=== PATIENT | male | born 1940 | race Caucasian/White ===

== ENCOUNTER 2017-11-21 11:37 | Observation (INO) | payer OTHER ==
[2017-11-21] MEDS ORDERED: ACETAMINOPHEN 500 MG TAB ONE (12:15)
[2017-11-21 12:21] LABS: Absolute Lymphocytes (CBC) 1.7 K/uL (0.7-4.9); Absolute Monocytes 0.6 K/uL (0.1-1.3); Absolute Neutrophil 5.9 K/uL (1.8-8.0); Basophils % 0.4 % (0-1.3); Eosinophils % 1.3 % (0-4.4); Hematocrit 46.1 % (39.6-49.0); Lymphocytes % 20.5 % (15.3-44.8); MCH 34.2 pg (27.0-35.0); MCV 94.9 fL (80-100); Monocytes % 6.7 % (3.3-12.3); RBC Red Blood Cell Count 4.85 M/uL (4.33-5.43)
--- NOTE | 2017-11-21 12:21 | RAD REPORT ---
EXAM DESCRIPTION: CT - Head Brain Wo Cont - 11/21/2017 12:11 pm CLINICAL HISTORY: Headache, photophobia COMPARISON: None. TECHNIQUE: Axial 5 mm thick images of the head were obtained without IV contrast. All CT scans are performed using dose optimization technique as appropriate and may include automated exposure control or mA/KV adjustment according to patient size. FINDINGS: No intracranial hemorrhage, mass, edema or shift of mid-line structures. No acute infarcti on changes seen. Patient has mild atrophy and chronic ischemic change. Ventricles are in proportion. Mastoid air cells are clear. Minimal mucosal thickening in the ethmoid air cells. No acute bony findings. IMPRESSION: Mild atrophy and chronic ischemic change. No acute finding.
[2017-11-21 12:24] LABS: Protime INR 0.98
[2017-11-21 12:34] LABS: BUN Blood Urea Nitrogen 15 mg/dL (7-18); Bicarbonate 26 mmol/L (21-32); Glucose Level 137 mg/dL (74-106); NT PRO-BNP 307 pg/mL (<450); Potassium 4.1 mmol/L (3.5-5.1); Sodium Level 141 mmol/L (136-145); Troponin (Emerg Dept Use Only) < 0.02 ng/mL (0.0-0.045)
--- NOTE | 2017-11-21 12:52 | RAD REPORT ---
EXAM DESCRIPTION: Katt Single View11/21/2017 12:30 pm CLINICAL HISTORY: Chest pain COMPARISON: 2014 FINDINGS: The lungs appear clear of acute infiltrate. The heart is normal size IMPRESSION: No acute abnormalities displayed
--- NOTE | 2017-11-21 13:32 | ER ---
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 BP was 180/130, then 130/80. Transition of care: patient was not received from another setting of care. Onset of symptoms was November 21, 2017. Risk Assessment: Do you want to hurt yourself or someone else? Patient reports no desire to harm self or others. Initial Sepsis Screen: Does the patient meet any 2 criteria? No. Patient's initial sepsis screen is negative. Does the patient have a suspected source of infection? No. Patient's initial sepsis screen is negative. Care prior to arrival: None. 11:43 Method Of Arrival: Ambulatory hb 11:43 Acuity: J CARLOS 3 hb Triage Assessment: 11:47 Headache History: Denies prior headaches. aa5 Historical: - Allergies: 11:45 No Known Allergies; hb - Home Meds: 11:45 metformin 500 mg Oral tab [Active]; hb - PMHx: 11:45 Diabetes - NIDDM; hb 11:47 Hypertension; aa5 - PSHx: 11:45 Lithotripsy; hb - Immunization history:: Adult Immunizations up to date. - Social history:: Smoking status: Patient uses tobacco products, smokes one pack cigarettes per day. - Ebola Screening: : No symptoms or risks identified at this time. Screenin:50 Abuse screen: Denies threats or abuse. Nutritional screening: No deficits noted. aa5 Tuberculosis screening: No symptoms or risk factors identified. Fall Risk None identified. Assessment: 11:47 General: Appears uncomfortable, Behavior is calm, cooperative. Pain: Complains of pain aa5 in forehead, right scientologist and left scientologist. Pt states "I also started having chest pain when I got here", chest pain described as sharp and to mid-sternal area. Pain radiates to left parietal area, right parietal area, occipital area and base of the skull Pain currently is 10 out of 10 on a pain scale. Quality of pain is described as aching, sharp, throbbing, Pain began 1 hour ago. Is continuous. Neuro: Level of Consciousness is awake, alert, obeys commands, Oriented to person, place, time, situation, [facility] Director are equal bilaterally Moves all extremities. Gait is steady, Speech is normal, Facial symmetry appears normal, Pupils are PERRLA, Reports headache. Cardiovascular: Reports lightheadedness, Heart tones S1 S2 present Rhythm is irregular. Respiratory: Airway is patent Respiratory effort is even, unlabored, Respiratory pattern is regular, symmetrical, Breath sounds are clear bilaterally. GI: Abdomen is round non-distended, Bowel sounds present X 4 quads. Abd is soft and non tender X 4 quads. : No signs and/or symptoms were reported regarding the genitourinary system. EENT: No signs and/or symptoms were reported regarding the EENT system. Derm: Skin is pink, warm \\T\\ dry. Musculoskeletal: Range of motion: intact in all extremities. 12:23 Reassessment: Patient and/or family updated on plan of care and expected duration. Pain aa5 level reassessed. Patient is alert, oriented x 3, equal unlabored respirations, skin warm/dry/pink. Pt back from CT scan . 13:30 Reassessment: Patient and/or family updated on plan of care and expected duration. Pain aa5 level reassessed. Patient is alert, oriented x 3, equal unlabored respirations, skin warm/dry/pink. Pain: Pain currently is 10 out of 10 on a pain scale. 14:30 Reassessment: Patient and/or family updated on plan of care and expected duration. Pain aa5 level reassessed. Patient is alert, oriented x 3, equal unlabored respirations, skin warm/dry/pink. Patient states feeling better. Pain: Pain currently is 5 out of 10 on a pain scale. Vital Signs: 11:42 BP 176 / 86; Pulse 105; Resp 16; Temp 98.4; Pulse Ox 96% on R/A; Weight 84.37 kg; hb Height 5 ft. 9 in. (175.26 cm); Pain 10/10; 12:30 BP 155 / 87; Pulse 79; Resp 17; Pulse Ox 97% on R/A; tw2 13:30 BP 162 / 70; Pulse 54; Resp 17; Pulse Ox 97% on R/A; tw2 14:30 BP 169 / 110; Pulse 59; Resp 17; Pulse Ox 98% on R/A; tw2 15:13 BP 149 / 92; Pulse 78; Resp 21; Pulse Ox 97% on R/A; tw2 11:42 Body Mass Index 27.47 (84.37 kg, 175.26 cm) hb ED Course: 11:40 Patient arrived in ED. mr 11:40 Jordy Jaime MD is Private Physician. mr 11:42 Arm band placed on right wrist. hb 11:44 Triage completed. hb 11:46 July Todd, ERNIE is Primary Nurse. aa5 11:47 Patient has correct armband on for positive identification. Placed in gown. Bed in low aa5 position. Call light in reach. Side rails up X2. 11:47 secured entrance monitor on. Pulse ox on. NIBP on. aa5 11:57 Tristen Matthew MD is Attending Physician. gs 12:00 Initial lab(s) drawn, by wy, sent to lab. Inserted saline lock: 20 gauge in left aa5 antecubital area, using aseptic technique. Blood collected. 12:02 EKG done, by logistics tech. reviewed by Tristen Matthew MD. at1 12:11 Head Brain Wo Cont CT In Process Unspecified. EDMS 12:29 X-ray completed. Portable x-ray completed in exam room. Patient tolerated procedure sw well. 12:30 XRAY Chest (1 view) In Process Unspecified. EDMS 13:29 Zayra Pascal MD is Hospitalizing Provider. gs 15:55 Patient admitted, IV remains in place. aa5 15:55 No provider procedures requiring assistance completed. aa5 Administered Medications: 12:23 Drug: Tylenol 500 mg Route: PO; aa5 13:30 Follow up: Response: No adverse reaction aa5 13:30 Drug: TORadol 15 mg Route: IVP; Site: left antecubital; aa5 13:40 Follow up: Response: No adverse reaction aa5 13:30 Drug: Zofran 4 mg Route: IVP; Site: left antecubital; aa5 13:34 Follow up: Response: No adverse reaction aa5 Outcome: 13:31 Decision to Hospitalize by Provider. gs 15:55 Admitted to Tele accompanied by tech, via wheelchair, with chart, Report called to candice Demarco RN 15:55 Condition: stable 15:55 Instructed on the need for admit, Demonstrated understanding of instructions. 16:00 Patient left the ED. aa5 Signatures: Dispatcher [employer] Chari Newman Perez, July, RN RN aa5 Khalida Yee, rolling machine tender EKG Tat1 Patsy Hoffmann Heather, RN RN Clarita Boone RN RN tw2 Tristen Matthew MD MD
--- NOTE | 2017-11-21 13:32 | EDPHYS ---
Physician Documentation [facility] Name: Toby Salgado Age: 77 yrs Sex: Male : 1940 Arrival Date: 11/21/2017 Time: 11:40 Bed 7 Private MD: Jordy Jaime ED Physician Tristen Matthew HPI: 11/21 15:52 This 77 yrs old Male presents to ER via Ambulatory with complaints of gs Headache, High Blood Pressure. 15:52 The patient has elevated blood pressure and discovered this work. Onset: The gs symptoms/episode began/occurred acutely. Modifying factors:. Associated signs and symptoms: Pertinent positives: chest pain, headache. Severity of symptoms: At its worst the blood pressure was severe, in the emergency department the blood pressure is improved, mildly. The patient has not experienced similar symptoms in the past. The patient has not recently seen a physician. Historical: - Allergies: 11:45 No Known Allergies; hb - Home Meds: 11:45 metformin 500 mg Oral tab [Active]; hb - PMHx: 11:45 Diabetes - NIDDM; hb 11:47 Hypertension; aa5 - PSHx: 11:45 Lithotripsy; hb - Immunization history:: Adult Immunizations up to date. - Social history:: Smoking status: Patient uses tobacco products, smokes one pack cigarettes per day. - Ebola Screening: : No symptoms or risks identified at this time. ROS: 15:52 All other systems are negative. gs Exam: 15:52 Head/Face: Normocephalic, atraumatic. Eyes: Pupils equal round and reactive to light, gs extra-ocular motions intact. Lids and lashes normal. Conjunctiva and sclera are non-icteric and not injected. Cornea within normal limits. Periorbital areas with no swelling, redness, or edema. ENT: Nares patent. No nasal discharge, no septal abnormalities noted. Tympanic membranes are normal and external auditory canals are clear. Oropharynx with no redness, swelling, or masses, exudates, or evidence of obstruction, uvula midline. Mucous membranes moist. Neck: Trachea midline, no thyromegaly or masses palpated, and no cervical lymphadenopathy. Supple, full range of motion without nuchal rigidity, or vertebral point tenderness. No Meningismus. Chest/axilla: Normal chest wall appearance and motion. Nontender with no deformity. No lesions are appreciated. Cardiovascular: Regular rate and rhythm with a normal S1 and S2. No gallops, murmurs, or rubs. Normal PMI, no JVD. No pulse deficits. Respiratory: Lungs have equal breath sounds bilaterally, clear to auscultation and percussion. No rales, rhonchi or wheezes noted. No increased work of breathing, no retractions or nasal flaring. Abdomen/GI: Soft, non-tender, with normal bowel sounds. No distension or tympany. No guarding or rebound. No evidence of tenderness throughout. Back: No spinal tenderness. No costovertebral tenderness. Full range of motion. Skin: Warm, dry with normal turgor. Normal color with no rashes, no lesions, and no evidence of cellulitis. MS/ Extremity: Pulses equal, no cyanosis. Neurovascular intact. Full, normal range of motion. 15:52 Constitutional: The patient appears alert, awake. 15:52 ECG was reviewed by the Attending Physician. 15:52 Neuro: Orientation: is normal, Cranial nerves: CN II- XII are normal as tested, Cerebellar function: normal finger to nose testing, Motor: strength is 5/5 in all extremities, Sensation: no obvious gross deficits, Gait: is steady. Vital Signs: 11:42 BP 176 / 86; Pulse 105; Resp 16; Temp 98.4; Pulse Ox 96% on R/A; Weight 84.37 kg; hb Height 5 ft. 9 in. (175.26 cm); Pain 10/10; 12:30 BP 155 / 87; Pulse 79; Resp 17; Pulse Ox 97% on R/A; tw2 13:30 BP 162 / 70; Pulse 54; Resp 17; Pulse Ox 97% on R/A; tw2 14:30 BP 169 / 110; Pulse 59; Resp 17; Pulse Ox 98% on R/A; tw2 15:13 BP 149 / 92; Pulse 78; Resp 21; Pulse Ox 97% on R/A; tw2 11:42 Body Mass Index 27.47 (84.37 kg, 175.26 cm) hb MDM: 11:57 Patient medically screened. 15:52 Differential diagnosis: CVA, intracerebral hemorrhage, mi,malignant htn. Data reviewed: vital signs, nurses notes. Response to treatment: the patient's symptoms have markedly improved after treatment, and as a result, I will admit patient. 11/21 12:00 Order name: Basic Metabolic Panel; Complete Time: 12:40 11/21 12:00 Order name: CBC with Diff; Complete Time: 12: 11/21 12:00 Order name: NT PRO-BNP; Complete Time: 12: 11/21 12:00 Order name: PT-INR; Complete Time: 12:56 11/21 12:00 Order name: Troponin (emerg Dept Use Only); Complete Time: 12: 11/21 12:00 Order name: D-Dimer; Complete Time: 12:56 11/21 12:00 Order name: XRAY Chest (1 view); Complete Time: 12: 11/21 12:00 Order name: EKG; Complete Time: 12: 11/21 12:00 Order name: Cardiac monitoring; Complete Time: 12: 11/21 12:00 Order name: EKG - Nurse/Tech; Complete Time: 12: 11/21 12:00 Order name: Head Brain Wo Cont CT; Complete Time: 12: 11/21 12:00 Order name: IV Saline Lock; Complete Time: 12: 11/21 12:00 Order name: Labs collected and sent; Complete Time: 12: 11/21 12:00 Order name: O2 Per Protocol; Complete Time: 12: 11/21 12:00 Order name: O2 Sat Monitoring; Complete Time: 12:01 EC:52 Rate is 89 beats/min. Rhythm is irregular. OR interval is normal. T waves are Inverted. Clinical impression: Abnormal EKG without significant change and ekg says mobitz 2 but i cannot appreciate marching pr and dropped qrs pt not bradycardic. Interpreted by me. Administered Medications: 12:23 Drug: Tylenol 500 mg Route: PO; aa5 13:30 Follow up: Response: No adverse reaction aa5 13:30 Drug: TORadol 15 mg Route: IVP; Site: left antecubital; aa5 13:40 Follow up: Response: No adverse reaction aa5 13:30 Drug: Zofran 4 mg Route: IVP; Site: left antecubital; aa5 13:34 Follow up: Response: No adverse reaction aa5 Disposition: 11/21/17 13:31 Hospitalization ordered by Zayra Pascal for Observation. Preliminary diagnosis are Chest pain, unspecified, Hypertensive heart disease. - Bed requested for Telemetry/MedSurg (observation). - Status is Observation. aa5 - Condition is Stable. - Problem is new. - Symptoms have improved. UTI on Admission? No Critical care time excluding procedures: 15:52 Critical care time: Bedside Care: 10 minutes, Consultation: 10 minutes, Family gs Intervention: 10 minutes. Total time: 30 minutes Signatures: Dispatcher [employer] EDMS Eugenia Munoz Audri RN RN aa5 Ashlee Rodriguez RN RN MatthewTristen MD MD gs Corrections: (The following items were deleted from the chart) 15:20 13:31 Hospitalization Ordered by Zayra Pascal MD for Observation. Preliminary bd diagnosis is Chest pain, unspecified; Hypertensive heart disease. Bed requested for Telemetry/MedSurg (observation). Status is Observation. Condition is Stable. Problem is new. Symptoms have improved. UTI on Admission? No. gs 16:00 15:20 11/21/2017 13:31 Hospitalization Ordered by Zayra Pascal MD for Observation. aa5 Preliminary diagnosis is Chest pain, unspecified; Hypertensive heart disease. Bed requested for Telemetry/MedSurg (observation). Status is Observation. Condition is Stable. Problem is new. Symptoms have improved. UTI on Admission? No. bd
[2017-11-21] MEDS ORDERED: ONDANSETRON 4 MG/2 ML VIAL ONE (13:37)
[2017-11-21] MEDS ORDERED: KETOROLAC 30 MG/ML INJ ONE (13:37)
--- NOTE | 2017-11-21 15:26 | EKG ---
Test Date: 2017-11-21 Test Time: 11:55:50 Installation Helper: ANETA MEASUREMENT RESULTS: Intervals: Rate: 89 NC: QRSD: 88 QT: 376 QTc: 457 [place]: P: 38 NC: QRS: 56 T: 42 INTERPRETIVE STATEMENTS: Sinus tachycardia with 2nd degree AV block (Mobitz I) with occasional premature ventricular complexes Abnormal ECG Compared to ECG 08/18/2014 03:02:39 Ventricular premature complex(es) now present Sinus rhythm no longer present Electronically Signed On 11-21-17 15:25:20 CDT by Ac Nolen
[2017-11-21] MEDS ORDERED: ACETAMINOPHEN 500 MG TAB PO PRN (16:26)
--- NOTE | 2017-11-21 16:41 | P.HP ---
Certification for Inpatient Patient admitted to: Observation With expected LOS: <2 Midnights Patient will require the following post-hospital care: None Practitioner: I am a practitioner with admitting privileges, knowledge of patient current condition, hospital course, and medical plan of care. Services: Services provided to patient in accordance with Admission requirements found in Title 42 Section 412.3 of the Code of Federal Regulations Patient History Date of Service: 11/21/17 Primary Care Provider: Dr. lopez Reason for admission: Headache History of Present Illness: This is a 77-year-old male with significant past medical history of high blood pressure presented to the ED complaining of having some headache and high blood pressure. Patient stated that this morning at work at around 10 o'clock while he was in meeting started having some headache that was getting worse progressively. Patient then checked his blood pressure and noted that his blood pressure was 160/130. At that time patient called his primary care doctor 's office and was seen in his office immediately. Patient's blood pressure in the doctor's office did come down to 160/80 however patient did continued to have headaches that were getting progressively worse and thus he decided to come to the ER. In the ER patient is was given IV pain medication which relieved his headaches however started having nausea since then. In the ER patient also had an elevated blood pressure that was intermittent in nature. Patient then was referred over to admission for further care. Patient states that he has never had similar episodes in the past. He recently he has lost a lot of weight and has stopped taking his blood pressure medication for his primary care doctors advice. No other complication or no other symptoms noted at this time. Patient denies having any fever chills shortness of breath chest pain abdominal pain or any other associated symptoms at this time Allergies No Known Allergies Allergy (Verified 08/18/14 08:15) Home Medications: NK [No Home Meds] 08/18/14 - Past Medical/Surgical History Diabetic: No -: kidney stones -: colon cancer -: lithotripsy - Social History Alcohol use: No CD- Drugs: No Caffeine use: Yes Review of Systems 10-point ROS is otherwise unremarkable Physical Examination - Physical Exam General: Alert, In no apparent distress HEENT: Atraumatic, PERRLA, Mucous membr. moist/pink, EOMI, Sclerae nonicteric Neck: Supple, 2+ carotid pulse no bruit, No LAD, Without JVD or thyroid abnormality Respiratory: Clear to auscultation bilaterally, Normal air movement Cardiovascular: Regular rate/rhythm, Normal S1 S2 Gastrointestinal: Normal bowel sounds, No tenderness Musculoskeletal: No tenderness Integumentary: No rashes Neurological: Normal gait, Normal speech, Normal strength at 5/5 x4 extr, Normal tone, Normal affect Lymphatics: No axilla or inguinal lymphadenopathy - Studies Laboratory Data (last 24 hrs) 11/21/17 12:03: PT 11.6, INR 0.98 11/21/17 12:03: WBC 8.2, Hgb 16.6, Hct 46.1, Plt Count 217 11/21/17 12:03: Sodium 141, Potassium 4.1, BUN 15, Creatinine 1.10, Glucose 137 H Assessment and Plan - Problems (Diagnosis) (1) Headache Current Visit: Yes Status: Acute Plan: Headache with high blood pressure -head CT in the ER negative for any acute abnormality. Patient with continued headache -will get MRI at this time. -pain medication for headache -most likely secondary to elevated blood pressure however will rule out acute TIA versus CVA Qualifiers: Headache type: unspecified Headache chronicity pattern: acute headache Intractability: intractable Qualified Code(s): R51 - Headache (2) Hypertensive urgency Current Visit: Yes Status: Acute Plan: Acute hypertensive urgency most likely related to stress at work -the patient will need to be restarted back on blood pressure medication. -Will get CBC at this time and will start patient on low-dose BJORN-inhibitor. Discharge Plan: Home Plan to discharge in: 24 Hours - Advance Directives Does patient have a Living Will: Yes Does patient have a Durable POA for Healthcare: Yes - Code Status/Comfort Care Code Status Assessed: Yes Critical Care: No
[2017-11-21] MEDS: ENOXAPARIN 40 MG/0.4 ML SQ SCH (17:40)
[2017-11-21] MEDS ORDERED: D50W 25 GM/50 ML SYRINGE IV PRN (18:01)
[2017-11-21] MEDS ORDERED: GLUCAGON 1 MG/VIAL IM PRN (18:01)
[2017-11-21 18:02] VITALS: BMI 27.4
[2017-11-21] MEDS ORDERED: INFLUENZA VACCINE (for 3y+) 0.5 ML DOSE IMVAC ONE (20:00)
[2017-11-21] MEDS ORDERED: PNEUMOCOCCAL VACCINE 0.5 ML IMVAC ONE (20:00)
[2017-11-21] MEDS ORDERED: HYDROMORPHONE HCL 1 MG/ML INJ IV ONE (20:20)
[2017-11-21] MEDS: INSULIN -REGULAR HUMAN 50 UNIT/0.5 ML ML SQ SCH (21:00)
[2017-11-21] MEDS: NICOTINE 14 MG/PAT TD SCH (21:39)
--- NOTE | 2017-11-21 22:35 | RAD REPORT ---
EXAM DESCRIPTION: MRI - Brain W/Wo Cont - 11/21/2017 9:07 pm CLINICAL HISTORY: Hypertension, stroke-like symptoms, history of bladder and colon cancer COMPARISON: CT head same date TECHNIQUE: Sagittal and axial T1-weighted images were obtained. Axial PD/heavily T2-weighted and T2- FLAIR images were obtained along with axial DWI/ADC mapping sequences. Coronal heavily T2 weighted s equence obtained. Axial and coronal post-contrast T1-weighted images were also obtained. A 19 ml Mag nevist contrast following utilized. FINDINGS: No intracranial hemorrhage, mass or acute infarction. There is no edema or shift of midli ne structures. No extra-axial fluid collections. Qiu-matter/white matter junction is preserved. Sig nal voids are seen as a normal finding in the major intracranial vessels. Mild atrophy changes are pr esent. Patient has punctate areas of chronic ischemic change scattered throughout the cerebral white matter. Basal ganglia and brainstem are spared. Ventricles are in proportion to any volume loss. Post-contrast images show normal enhancement. No dural thickening. No evidence for metastatic disease . Caps Mastoid air cells and paranasal sinuses are clear. IMPRESSION: No acute infarction changes. Patient has mild atrophy and chronic ischemic change.
--- NOTE | 2017-11-21 22:37 | RAD REPORT ---
EXAM DESCRIPTION: MRI - MRA Neck W/Wo Cont - 11/21/2017 9:07 pm CLINICAL HISTORY: Stroke-like symptoms COMPARISON: CT head same date, MRI brain same date TECHNIQUE: Axial and coronal 3D [id number] image acquisition was performed. 3D rotational images were generated with source and reconstruction images reviewed. FINDINGS: Aortic arch is 3 vessel. No great vessel origins stenosis. Vertebral arteries are codomina nt with no origin stenosis. Common carotid artery show no suspicious findings. Minimal atheroscleroti c change present at the origin of each internal carotid artery. No hemodynamically significant degree of narrowing. More distally internal carotid artery's are unremarkable. No dissection. No significan t vertebral artery disease seen. IMPRESSION: MRA neck imaging shows mild atherosclerotic changes at the bilateral carotid bulb and pr oximal ICA regions. No significant stenoses.
--- NOTE | 2017-11-21 22:39 | RAD REPORT ---
EXAM DESCRIPTION: MRI - MRA Head Wo Cont - 11/21/2017 9:06 pm CLINICAL HISTORY: Stroke-like symptoms COMPARISON: CT head same date, MRI same date TECHNIQUE: Axial and coronal 3D [id number] image acquisition was performed. 3D rotational images were generated with source and reconstruction images reviewed. FINDINGS: No aneurysm or vascular malformation seen. No significant atherosclerotic changes are iden tifiable. Basilar artery is normal. Left P1 LABOR MEDIATOR segment is absent. Patient has normal variant persist ent origin supply to the left posterior cerebral artery. Right posterior communicating artery i s present. Anterior communicating artery is present with the left anterior cerebral artery supplied b y the right side circulation. No distal internal carotid artery abnormality. IMPRESSION: MRA Head imaging shows no significant atherosclerotic change or stenosis. No aneurysm or vascular malformation.
[2017-11-22 04:14] LABS: Absolute Lymphocytes (CBC) 1.7 K/uL (0.7-4.9); Absolute Monocytes 0.6 K/uL (0.1-1.3); Absolute Neutrophil 4.1 K/uL (1.8-8.0); Basophils % 0.7 % (0-1.3); Eosinophils % 4.2 % (0-4.4); Hematocrit 40.2 % (39.6-49.0); Lymphocytes % 24.9 % (15.3-44.8); MCH 35.1 pg (27.0-35.0); MCV 95.8 fL (80-100); MPV 8.5 fL (7.6-11.3)
[2017-11-22 04:34] LABS: ALT/SGPT 25 U/L (12-78); AST/SGOT 22 U/L (15-37); Albumin 2.9 g/dL (3.4-5.0); Alkaline Phosphatase 56 U/L (45-117); BUN Blood Urea Nitrogen 25 mg/dL (7-18); Bicarbonate 28 mmol/L (21-32); Bilirubin Total 0.4 mg/dL (0.2-1.0); Glucose Level 146 mg/dL (74-106); HDL Cholesterol 23 mg/dL (40-60); LDL Cholesterol, Calculated ND (<130); Potassium 4.7 mmol/L (3.5-5.1); Protein, Total 5.9 g/dL (6.4-8.2); Sodium Level 144 mmol/L (136-145)
[2017-11-22 04:46] LABS: LDL, Direct 96 mg/dL (100-129)
[2017-11-22] MEDS: INSULIN -REGULAR HUMAN 50 UNIT/0.5 ML ML SQ SCH ×3 (07:30→16:30)
[2017-11-22] MEDS: NICOTINE 14 MG/PAT TD SCH (08:24)
[2017-11-22] MEDS: ENOXAPARIN 40 MG/0.4 ML SQ SCH (08:25)
[2017-11-22 10:47] LABS: RPR Titer ND
[2017-11-22 10:55] VITALS: O2SAT 98
--- NOTE | 2017-11-22 11:55 | P.PN ---
Subjective Date of Service: 11/22/17 Primary Care Provider: Dr. lopez Chief Complaint: Headache Pt seen and examined at bedside with RN. Chart reviewed. Case DW with PCP and neurology. Still complains of having GONZALES that is starting behind his right eye and going to the back of his ear. Denies having n/v or blurry vision Review of Systems 10-point ROS is otherwise unremarkable Physical Examination - Vital Signs Temperature: 97.7 F Blood Pressure: 151/62 Pulse: 65 Respirations: 16 Pulse Ox (%): 98 - Physical Exam General: Alert, In no apparent distress HEENT: Atraumatic, PERRLA, EOMI Neck: Supple, JVD not distended Respiratory: Clear to auscultation bilaterally, Normal air movement Cardiovascular: Regular rate/rhythm, Normal S1 S2 Gastrointestinal: Normal bowel sounds, No tenderness Musculoskeletal: No tenderness Integumentary: No rashes Neurological: Normal speech, Normal tone, Normal affect Lymphatics: No axilla or inguinal lymphadenopathy - Studies Laboratory Data (last 24 hrs) 11/21/17 12:03: PT 11.6, INR 0.98 11/21/17 12:03: WBC 8.2, Hgb 16.6, Hct 46.1, Plt Count 217 11/21/17 12:03: Sodium 141, Potassium 4.1, BUN 15, Creatinine 1.10, Glucose 137 H Medications List Reviewed: Yes Assessment And Plan - Current Problems (Diagnosis) (1) Headache Onset Date: 11/22/17 Current Visit: Yes Status: Acute Plan: Headache still presistent. -GONZALES behind the eye and radiating to the back of the ear and temporal area. Cluster GONZALES vs Temporal Arities. -head CT negative -MRI negaitve -LAb work pending -Carotid Doppler Pending Qualifiers: Headache type: unspecified Headache chronicity pattern: acute headache Intractability: intractable Qualified Code(s): R51 - Headache (2) Hypertensive urgency Onset Date: 11/22/17 Current Visit: Yes Status: Acute Plan: Acute hypertensive urgency most likely related to stress at work. resolved Now. -Restart Home medication Discharge Plan: Home Plan to discharge in: 48 Hours - Code Status/Comfort Care Code Status Assessed: Yes Critical Care: No
[2017-11-22 12:09] LABS: C-Reactive Protein < 2.90 mg/L (<3.00)
--- NOTE | 2017-11-22 14:47 | RAD REPORT ---
EXAM DESCRIPTION: USCarotid Artery Bilateral11/22/2017 2:34 pm CLINICAL HISTORY: CVA COMPARISON: None FINDINGS: The velocity of the right internal carotid artery equals 120 cm/sec. The right ICA/CCA rat io [id number] The velocity of the left internal carotid artery equals 51 cm/sec. The left ICA/CCA ratio 1.2 Mild plaque is present within the carotid arteries. The vertebral arteries demonstrate antegrade flow IMPRESSION: Mild plaque within the carotid arteries without evidence of a hemodynamically significan t stenosis
[2017-11-22 16:59] LABS: Urine Appearance CLEAR; Urine Bilirubin NEGATIVE (NEG); Urine Blood NEGATIVE (NEG); Urine Color YELLOW; Urine Glucose 2+ (NEG); Urine Protein NEGATIVE (NEG); Urine pH 5.5 (5.0-7.0)
[2017-11-22 17:04] VITALS: TEMP 98.6
[2017-11-22 17:16] LABS: Urine Microscopic Reflex NO UMIC
[2017-11-22 20:35] VITALS: BP 155/80
[2017-11-22 22:45] LABS: RPR (Rapid Plasma Reagin) NON-REACT (NON-REACT)
--- NOTE | 2017-11-23 01:05 | CON ---
Reason: Headache. History: A 77-year-old gentleman with history of hypertension, lost weight, tapered his antihyperten sives to off. Yesterday, he noticed his blood pressure was high. He went to his primary care physic livier's office, 160/130 and initially brought down to 160/88, but would not stay in the normotensive ra nge. Sent to the Emergency Department. While there, blood pressure was brought under better control , but he developed headache, pain in the region of the right eye. No vision changes. No nausea or v omiting. Radiated back across the temporal region. Labs were unremarkable. CT scan of the brain wa s unremarkable. There is no real evidence of end-organ damage, but given the aforementioned, he was admitted. B12 normal. Brain MRI normal. MRA normal. No aneurysm. MRA cervical vessels normal. N o dissection. Carotid Doppler normal. Sedimentation rate normal at 13. CRP normal at less than 3. The patient's headache at this juncture is resolved. He is a patient of Dr. Jaime. Consultation w as requested. Past Medical History: Diabetes, hyperlipidemia, hypertension. Routine Medications: Normally metformin. Allergies: NONE. Social History: He smokes. He is involved in [employer]. He actually just sold [employer]. Family History: Noncontributory. Review of Systems: General: Good health. Eyes: Negative. Ears, Nose, Throat: Negative. Cardiovascular: Hypertension. Pulmonary: Negative. GI: Negative. : Negative. Musculoskeletal: Also with history of cervical radiculopathy. Neurologic: As noted. Psychiatric: Negative. Endocrine: Diabetes. Hematologic: Negative. Physical Examination: Vital Signs: 98.6, 75, 16, 140/57. General: He is a pleasant gentleman lying in bed, in no distress. Heart: Sinus rhythm. Extra beats present. Lungs: Clear. No carotid bruits. Abdomen: Soft. Bowel sounds present. Neurologic: Awake, alert, oriented to time, person, place, situation. Pupils myotic, reactive. No papilledema. No flame hemorrhages. Visual acuity 20/30 OS and OD with corrective lenses. Ocular mo tion full. Land full. Neck supple. Facial strength and sensation normal. Tongue protrudes evenl y. Soft palate elevates symmetrically bilaterally. Extremity strength full. Sensation intact. Ref lexes 1/4 symmetric. Toes are downgoing. Cerebellar exam demonstrates no ataxia. Pertinent Laboratory Data: Imaging and labs as noted in history of present illness. Impression: Headache, resolved, etiology likely vasoconstriction/vasodilation mismatch from the tono ed changes in blood pressure over the last 24 hours. Plan: No further neurologic intervention required at this juncture with regard to the headache. I w michelle say the patient is safe to be discharged home from a nervous system standpoint. He should likel y, given the elevated blood pressures on presentation, be discharged on some type of antihypertensive . Thank you for the consult. RAQUEL Voice ID: [id number] Report ID: [id number]
[2017-11-23] MEDS ORDERED: FENOFIBRATE 48 MG TAB PO SCH (09:00)
--- NOTE | 2017-11-23 12:35 | P.DS ---
Discharge Date: 11/22/17 Primary Care Provider: Dr. Jaime Disposition: ROUTINE DISCHARGE Discharge Condition: GOOD Reason for Admission: Headache Consultations: Neurology Brief History of Present Illness: This is a 77-year-old male with significant past medical history of high blood pressure presented to the ED complaining of having some headache and high blood pressure. Patient stated that this morning at work at around 10 o'clock while he was in meeting started having some headache that was getting worse progressively. Patient then checked his blood pressure and noted that his blood pressure was 160/130. At that time patient called his primary care doctor 's office and was seen in his office immediately. Patient's blood pressure in the doctor's office did come down to 160/80 however patient did continued to have headaches that were getting progressively worse and thus he decided to come to the ER. In the ER patient is was given IV pain medication which relieved his headaches however started having nausea since then. In the ER patient also had an elevated blood pressure that was intermittent in nature. Patient then was referred over to admission for further care. Patient states that he has never had similar episodes in the past. He recently he has lost a lot of weight and has stopped taking his blood pressure medication for his primary care doctors advice. No other complication or no other symptoms noted at this time. Patient denies having any fever chills shortness of breath chest pain abdominal pain or any other associated symptoms at this time Hospital Course: Patient was seen by Neurology. After evaluation they felt that patient was stable for discharge. Patient was discharged home on antihypertensives and medication to lower triglycerides. Patient was also advised to take a low-dose aspirin. Patient was also advised to take vitamin B12 as his B12 level was on the low side. At this time, patient is stable for discharge home with outpatient follow-up. Vital Signs/Physical Exam: Temp Pulse Resp BP Pulse Ox 98.6 F 75 20 155/80 H 94 11/22/17 20:00 11/22/17 20:00 11/22/17 20:00 11/22/17 20:00 11/22/17 20:00 General: Alert, In no apparent distress, Oriented x3 Laboratory Data at Discharge: WBC 6.6 K/uL (4.3-10.9) D 11/22/17 03:44 Hgb 14.8 g/dL (13.6-17.9) 11/22/17 03:44 Hct 40.2 % (39.6-49.0) 11/22/17 03:44 Plt Count 186 K/uL (152-406) 11/22/17 03:44 PT 11.6 SECONDS (9.5-12.5) 11/21/17 12:03 INR 0.98 11/21/17 12:03 Sodium 144 mmol/L (136-145) 11/22/17 03:44 Potassium 4.7 mmol/L (3.5-5.1) 11/22/17 03:44 BUN 25 mg/dL (7-18) H 11/22/17 03:44 Creatinine 1.20 mg/dL (0.55-1.3) 11/22/17 03:44 Glucose 146 mg/dL (74-106) H 11/22/17 03:44 Total Bilirubin 0.4 mg/dL (0.2-1.0) 11/22/17 03:44 AST 22 U/L (15-37) 11/22/17 03:44 ALT 25 U/L (12-78) 11/22/17 03:44 Alkaline Phosphatase 56 U/L (45-117) 11/22/17 03:44 Triglycerides 876 mg/dL (<150) H 11/22/17 03:44 Cholesterol 179 mg/dL (<200) 11/22/17 03:44 LDL Cholesterol Direct 96 mg/dL (100-129) L 11/22/17 03:44 HDL Cholesterol 23 mg/dL (40-60) L 11/22/17 03:44 Cholesterol/HDL Ratio 7.78 11/22/17 03:44 Home Medications: Metformin HCl 500 mg PO BID 11/21/17 Amlodipine Besylate [Norvasc] 10 mg PO DAILY #30 tablet 11/22/17 Aspirin [Aspirin EC 81 MG] 81 mg PO DAILY #30 tablet. 11/22/17 Cyanocobalamin/Cobamamide [Vitamin B-12 5,000 Mcg Tab Sl] 1 each SL DAILY #30 tab.subl 11/22/17 Fenofibrate [Tricor*] 48 mg PO DAILY #30 tab 11/22/17 New Medications: Amlodipine Besylate [Norvasc] 10 mg PO DAILY #30 tablet Aspirin [Aspirin EC 81 MG] 81 mg PO DAILY #30 tablet.dr Cyanocobalamin/Cobamamide [Vitamin B-12 5,000 Mcg Tab Sl] 1 each SL DAILY #30 tab.subl Fenofibrate [Tricor*] 48 mg PO DAILY #30 tab Patient Discharge Instructions: OK TO DC IV AND DC HOME. FOLLOW-UP WITH PRIMARY CARE PROVIDER IN 1-2 WEEKS. FOLLOW-UP WITH CARDIOLOGY IN 1-2 WEEKS. RETURN TO THE ER IF SYMPTOMS WORSENS. CALL DR. MARTINEZ AT [phone] IF ANY QUESTIONS REGARDING HOSPITAL STAY. PLEASE CALL THE FLOOR AT [phone] IF ANY MEDICATION OR NURSING QUESTIONS. Diet: AHA Activity: Fall precautions Followup: Ac Nolen MD [ACTIVE - CAN ADMIT] - 1-2 Weeks () Dariel Brownlee MD [ACTIVE - CAN ADMIT] - (As needed.) Time spent managing pt's care (in minutes): 20
== END 2017-11-22 21:50 | disposition home or self-care (01) ==
LOC: ER 11:37 → ERHOLD 15:07 → 4TH 15:51
PROVIDERS: ADMIT Family Medicine; ATTEND Family Medicine
DX: I16.0 Hypertensive urgency (principal); E11.9 Type 2 diabetes mellitus without complications; E78.5 Hyperlipidemia, unspecified; F17.210 Nicotine dependence, cigarettes, uncomplicated; Z85.038 Personal history of other malignant neoplasm of large intestine
CPT/HCPCS: 36415; 70450; 70544; 70549; 70553; 71045; 80048; 80053; 80061; 81003; 82607; 82962; 83880; 84484; 85025; 85379; 85610; 85652; 86140; 86592; 93005; 93880; 96374; 96375; 99285; A9577; G0378; J1170; J1650; J2405

== ENCOUNTER 2018-05-31 16:45 | Emergency (ER) | payer OTHER ==
[2018-05-31] MEDS ORDERED: MEPERIDINE HCL 50 MG/ML AMP ONE (17:51)
--- NOTE | 2018-05-31 18:22 | ER ---
Nurse's Notes [facility] Name: Toby Salgado Age: 77 yrs Sex: Male : 1940 Arrival Date: 05/31/2018 Time: 16:49 Bed 16 Private MD: Jordy Jaime Diagnosis: Sprain of lateral collateral ligament of left knee Presentation: 05/31 16:56 Presenting complaint: Patient states: "I was playing golf and I fell and hurt my knee". aa5 Pt c/o pain to left knee. Transition of care: patient was not received from another setting of care. Onset of symptoms was May 31, 2018. Risk Assessment: Do you want to hurt yourself or someone else? Patient reports no desire to harm self or others. Care prior to arrival: None. 16:56 Method Of Arrival: Wheelchair aa5 16:56 Acuity: J CARLOS 4 aa5 17:56 Initial Sepsis Screen: Does the patient meet any 2 criteria? No. Patient's initial rv sepsis screen is negative. Does the patient have a suspected source of infection? No. Patient's initial sepsis screen is negative. Historical: - Allergies: 16:57 No Known Allergies; aa5 - Home Meds: 17:56 metformin 500 mg Oral tab [Active]; rv - PMHx: 16:57 Diabetes - NIDDM; Hypertension; aa5 - PSHx: 16:57 Lithotripsy; aa5 - Immunization history:: Adult Immunizations unknown. - Social history:: Smoking status: Patient uses tobacco products, denies chronic smoking, but will smoke occasionally. - Ebola Screening: : No symptoms or risks identified at this time. - Family history:: not pertinent. - Hospitalizations: : No recent hospitalization is reported. Screenin:55 Abuse screen: Denies threats or abuse. Denies injuries from another. Nutritional rv screening: No deficits noted. Tuberculosis screening: No symptoms or risk factors identified. Fall Risk None identified. Assessment: 17:55 General: Appears in no apparent distress. comfortable, Behavior is calm, cooperative. rv Pain: Complains of pain in lateral aspect of left knee. Neuro: Level of Consciousness is awake, alert, obeys commands, Oriented to person, place, time, situation. Cardiovascular: Capillary refill < 3 seconds. Respiratory: Airway is patent. GI: No signs and/or symptoms were reported involving the gastrointestinal system. : No signs and/or symptoms were reported regarding the genitourinary system. EENT: No signs and/or symptoms were reported regarding the EENT system. Derm: Skin is intact. Musculoskeletal: Reports pain in lateral aspect of left knee. Vital Signs: 16:58 BP 137 / 105; Pulse 76; Resp 16 S; Temp 98.7(O); Pulse Ox 99% on R/A; Weight 83.01 kg aa5 (R); Height 5 ft. 9 in. (175.26 cm) (R); Pain 9/10; 18:30 BP 128 / 99 LA; Pulse 75; Resp 17 S; Pulse Ox 99% on R/A; rv 16:58 Body Mass Index 27.02 (83.01 kg, 175.26 cm) aa5 ED Course: 16:49 Patient arrived in ED. mr 16:49 Jordy Jaime MD is Private Physician. mr 16:56 Arm band placed on. aa 16:57 Triage completed. aa5 17:05 Ted Swenson MD is Attending Physician. rn 17:37 Abner Rivas RN is Primary Nurse. rv 17:56 Patient has correct armband on for positive identification. Placed in gown. Bed in low rv position. Call light in reach. Side rails up X 1. Pulse ox on. NIBP on. 18:08 XRAY Knee LEFT 3 view In Process Unspecified. EDMS 18:21 Jose Cho MD is Referral Physician. rn 19:12 No provider procedures requiring assistance completed. Patient did not have IV access rv during this emergency room visit. Administered Medications: 17:35 Drug: Demerol 50 mg Route: IM; Site: right deltoid; rv 19:12 Follow up: Response: No adverse reaction; Pain is decreased rv Outcome: 18:21 Discharge ordered by . rn 19:13 Discharged to home with crutches. rv 19:13 Condition: good 19:13 Discharge instructions given to patient, family, Instructed on discharge instructions, follow up and referral plans. medication usage, Demonstrated understanding of instructions, follow-up care, medications, Prescriptions given X 3. 19:15 Patient left the ED. rv Signatures: Dispatcher [employer] [facility] Latoya Ellington mr Ted Swenson MD MD rn Calderon, Audri, RN RN aa5 Abner Rivas, ERNIE RN rv Corrections: (The following items were deleted from the chart) 17:55 17:55 Musculoskeletal: No signs and/or symptoms reported regarding the musculoskeletal rv system. rv
--- NOTE | 2018-05-31 18:22 | EDPHYS ---
Physician Documentation [facility] Name: Toby Salgado Age: 77 yrs Sex: Male : 1940 Arrival Date: 05/31/2018 Time: 16:49 Bed 16 Private MD: Jordy Jaime ED Physician Ted Swenson HPI: 05/31 17:28 This 77 yrs old Male presents to ER via Wheelchair with complaints of Leg rn Pain. 17:28 The patient presents with decreased range of motion, an injury, pain. The complaints rn affect the lateral aspect of left knee. Onset: The symptoms/episode began/occurred today. Modifying factors: The symptoms are alleviated by remaining still, the symptoms are aggravated by movement, weight bearing, bending knee. Severity of symptoms: At their worst the symptoms were moderate, in the emergency department the symptoms are unchanged. The patient has not experienced similar symptoms in the past. The patient has not recently seen a physician. 17:29 Reports playing golf, on bank, twisted and hurt left knee, heard a pop, did not strike rn knee on surface. Reports able to drive himself home, no gross deformity, hurts to walk and bend knee. . Historical: - Allergies: 16:57 No Known Allergies; aa5 - Home Meds: 17:56 metformin 500 mg Oral tab [Active]; rv - PMHx: 16:57 Diabetes - NIDDM; Hypertension; aa5 - PSHx: 16:57 Lithotripsy; aa5 - Immunization history:: Adult Immunizations unknown. - Social history:: Smoking status: Patient uses tobacco products, denies chronic smoking, but will smoke occasionally. - Ebola Screening: : No symptoms or risks identified at this time. - Family history:: not pertinent. - Hospitalizations: : No recent hospitalization is reported. ROS: 17:40 Constitutional: Negative for fever, chills, and weight loss, MS/Extremity: + left knee rn pain and decreased ROM Skin: Negative for injury, rash, and discoloration, Neuro: Negative for headache, weakness, numbness, tingling, and seizure. Exam: 17:40 Constitutional: This is a well developed, well nourished patient who is awake, alert, rn and in no acute distress. MS/ Extremity: Pulses equal, no cyanosis. Able to extend leg actively, + tenderness isolated to left lateral knee, minimal to no knee effusion, no medial tenderness, no tenderness of patella, no tibia tenderness. No quadriceps pain or deformity. Vital Signs: 16:58 BP 137 / 105; Pulse 76; Resp 16 S; Temp 98.7(O); Pulse Ox 99% on R/A; Weight 83.01 kg aa5 (R); Height 5 ft. 9 in. (175.26 cm) (R); Pain 9/10; 18:30 BP 128 / 99 LA; Pulse 75; Resp 17 S; Pulse Ox 99% on R/A; rv 16:58 Body Mass Index 27.02 (83.01 kg, 175.26 cm) aa5 MDM: 17:05 Patient medically screened. rn 18:20 Differential diagnosis: closed fracture, contusion, tendonitis, ligamentous injury. rn Data reviewed: vital signs, nurses notes, radiologic studies, plain films, and as a result, I will discharge patient. Counseling: I had a detailed discussion with the patient and/or guardian regarding: the historical points, exam findings, and any diagnostic results supporting the discharge/admit diagnosis, radiology results, the need for outpatient follow up, to return to the emergency department if symptoms worsen or persist or if there are any questions or concerns that arise at home. Response to treatment: the patient's symptoms have mildly improved after treatment, and as a result, I will discharge patient. Special discussion: I discussed with the patient/guardian in detail that at this point there is no indication for admission to the hospital. It is understood, however, that if the symptoms persist or worsen the patient needs to return immediately for re-evaluation. Further emergent ED testing is not indicated at this point in time. I discussed with the patient/guardian in detail the need to arrange with the PCP or specialist further outpatient testing, MRI, Based on the history and exam findings, there is no indication for further emergent testing or inpatient evaluation. I discussed with the patient/guardian the need to see the orthopedic surgeon for further evaluation of the symptoms. 05/31 17:16 Order name: XRAY Knee LEFT 3 view; Complete Time: 18:46 rn 05/31 18:19 Order name: Knee Immobilizer; Complete Time: 18:27 rn 05/31 18:19 Order name: Crutches; Complete Time: 18:27 rn Administered Medications: 17:35 Drug: Demerol 50 mg Route: IM; Site: right deltoid; rv 19:12 Follow up: Response: No adverse reaction; Pain is decreased rv Disposition: 05/31/18 18:21 Discharged to Home. Impression: Sprain of lateral collateral ligament of left knee. - Condition is Stable. - Discharge Instructions: Knee Immobilizer, Knee Sprain. - Prescriptions for Ibuprofen 800 mg Oral Tablet - take 1 tablet by ORAL route every 12 hours As needed take with food; 20 tablet. Tylenol- Codeine #3 300-30 mg Oral Tablet - take 1 tablet by ORAL route every 6 hours As needed; 20 tablet. Cyclobenzaprine 10 mg Oral Tablet - take 1 tablet by ORAL route every 8 hours As needed; 20 tablet. - Medication Reconciliation Form, Thank You Letter, Antibiotic Education, Prescription Opioid Use form. - Follow up: Jose Cho MD; When: As needed; Reason: Recheck today's complaints, Re-evaluation by your physician. - Problem is new. - Symptoms have improved. Signatures: Dispatcher [employer] EDMS Ted Swenson MD MD rn Calderon, Audri, RN RN aa5 Abner Rivas RN RN rv Corrections: (The following items were deleted from the chart) 19:15 18:21 05/31/2018 18:21 Discharged to Home. Impression: Sprain of lateral collateral rv ligament of left knee. Condition is Stable. Forms are Medication Reconciliation Form, Thank You Letter, Antibiotic Education, Prescription Opioid Use. Follow up: Dr. Jose Cho; When: As needed; Reason: Recheck today's complaints, Re-evaluation by your physician. Problem is new. Symptoms have improved. rn
--- NOTE | 2018-05-31 18:42 | RAD REPORT ---
EXAM DESCRIPTION: RAD - Knee Left 3 View - 05/31/2018 6:08 pm CLINICAL HISTORY: PAIN COMPARISON: No comparisons FINDINGS: A small suprapatellar joint effusion is present. No acute fracture or dislocation seen.
[2018-05-31 19:27] VITALS: TEMP 98.7; O2SAT 99
[2018-05-31 19:28] VITALS: BP 128/99
== END 2018-05-31 19:15 | disposition home or self-care (01) ==
LOC: ER 16:45
DX: S83.422A Sprain of lateral collateral ligament of left knee, initial encounter (principal); X58.XXXA Exposure to other specified factors, initial encounter; Y93.53 Activity, golf; Y92.9 Unspecified place or not applicable; Z72.0 Tobacco use; I10 Essential (primary) hypertension; E11.9 Type 2 diabetes mellitus without complications
CPT/HCPCS: 96372; 99284; J2175